=== PATIENT | female | born 1970 | race Two or more races ===

== ENCOUNTER 2024-12-27 16:52 | Emergency (ER) | payer OTHER, SELFPAY ==
[2024-12-27 17:00] VITALS: BP 157/66
[2024-12-27 17:02] VITALS: BP 157/66
[2024-12-27] MEDS: NSS 1000 IV (17:02)
[2024-12-27] MEDS: VALIUM INJECTION 2 MG IV (17:13)
[2024-12-27 17:24] LABS: ALT (SGPT) 202 U/L (0-35); AST (SGOT) 82 U/L (14-36); Albumin 4.8 g/dl (3.5-5.0); Alkaline Phosphatase 123 U/L (38-126); Blood Urea Nitrogen 18 mg/dl (7-17); Calcium 9.9 mg/dl (8.4-10.2); Carbon Dioxide 19 mmol/L (22-30); Chloride 104 mmol/L (98-107); Glucose 209 mg/dl (70-99); Potassium 3.8 mmol/L (3.5-5.1); Sodium 135 mmol/L (135-145); Total Protein 8.1 g/dl (6.3-8.2); eGFR > 60.00
--- NOTE | 2024-12-27 17:25 | ED.GENMED ---
History of Present Illness
General
Chief Complaint: Dizziness
Time Seen by Provider: 12/27/24 17:25
Nursing documentation reviewed up to this point in time: agreed with
History of Present Illness
History of Present Illness:
54-year-old female presents to the ER via EMS for evaluation of dizziness and feeling generally unwell. Patient states that she has felt unwell all day but had onset of dizziness after she had 2 sips of her 's beer. Patient received
droperidol and route to the ER along with Valium and is quite somnolent during interview limiting answering her questions. Patient vomiting and with loose stools on arrival to the ED. She is easily arousable to tactile/verbal stimuli but quickly
falls back asleep.
Past History
Past History
ED Past Medical History: HTN and NIDDM
Phy Exam
Physical Exam
Physical Exam:
Patient is sleeping but arousable, appears in no acute distress, dried vomit present on her chest, head is NCAT, PERRL, EOMI, no nystagmus, mucous membranes moist, conjunctiva pink, heart regular rate and rhythm without murmurs or ectopy, lungs are
clear to auscultation without wheezes rales or rhonchi, no JVD, abdomen is soft and nontender on palpation, extremities without edema, GCS is 15, moving all extremities symmetrically without focal deficit
Course
Orders/Labs/Results
Orders:
Orders
12/27/24 16:55
EKG [Electrocardiogram (*1)] Urgent
Reason for Study: Vertigo / Dizzy
EKG- Treatment ONCE
12/27/24 17:01
Complete Blood Count/With Diff Urgent
Comprehensive Metabolic Panel Urgent
0.9% Sodium Chloride 1000 ml [Nss] 1,000 ml IV BOLUS
12/27/24 17:10
0.9% Sodium Chloride 1000 ml [Nss] 1,000 ml IV BOLUS
diazePAM [Valium Injection] 2 mg IV NOW STA
12/27/24 17:36
CT Head W/o Iv Contrast Urgent
Comment:
Reason For Exam: vertigo
12/27/24 19:27
Urinalysis Urgent
Date Specimen was Collected: 12/27/24
Time Specimen was Collected: :25
Urine Microscopic Urgent
Date Specimen was Collected: 12/27/24
Time Specimen was Collected: 19:25
12/27/24 20:56
CefTRIAXone [Rocephin] 1,000 mg IV NOW STA
Abnormal Lab Results
12/27/24 12/27/24
17:01 19:27
Absolute Lymphs (auto) 5.8 H 10^3/uL
(1.2-3.4)
Neutrophils % 33.7 L %
(42.2-75.2)
Lymphocytes % 55.7 H %
(20.5-51.1)
Carbon Dioxide 19 L mmol/L
(22-30)
BUN 18 H mg/dl
(7-17)
Glucose 209 H mg/dl
(70-99)
AST 82 H U/L
(14-36)
ALT 202 H U/L
(0-35)
Urine Ketones 3+ A
(Negative)
Urine Nitrite Positive A
(Negative)
Ur Leukocyte Esterase 2+ A
(Negative)
Urine RBC 3-6 A /HPF
(0-2)
Urine WBC 6-10 A /HPF
(0-5)
Urine Bacteria Many A
(Negative)
Urine Albumin 2+ A
(Neg - Trace)
12/27/24 17:01
12/27/24 17:01
CBC within normal limits. Mild elevation of blood sugar, kidney function preserved. Electrolytes without significant dyscrasia
Vital Signs
Initial and Last Documented VS:
Initial Vital Signs
Pulse Resp
84 17
12/27/24 16:59 12/27/24 16:59
Last Documented Vital Signs
Temp Pulse Resp BP Pulse Ox
98.3 F 60 18 111/69 94
12/27/24 17:02 12/27/24 22:00 12/27/24 22:00 12/27/24 22:00 12/27/24 22:00
*Pulse Oximetry
SaO2: 97
Oxygen Mode of Delivery: Room air
Patient hypoxic: no
*EKG
Interpreted by ED Provider?: Yes (I independently viewed and interpreted twelve-lead EKG showing normal sinus rhythm, rate 77, leftward axis, no ST elevation, borderline QT prolongation at 486 ms, no evidence for acute ST VT no prior for comparison)
*Ladder Operator Interpretation
Rate: normal (I independently viewed and interpreted rhythm strip showing normal sinus rhythm, no ectopy)
*Critical Care Note
Total Time (30-74mins, 75-104mins- exclusive of procedures): Not Applicable
Update Note
Update Note:
1908: Patient sleeping comfortably, vital signs stable. IV fluids infusing. Awaiting urinalysis. Awaiting CT.
2114: I discussed with patient and now present bedside very reassuring workup in the emergency department. CT head negative. Patient feeling much better after resting after medication administration. We again reviewed events of today,
would suspect that patient has urinary tract infection and experienced a vasovagal episode. I discussed with patient use of antibiotics and need for follow-up with primary care physician. She and feel comfortable with plan. Will plan for
discharge after initial dose of antibiotics.
ED Attending Note
-
Portions of this chart may have been created with voice recognition software.� Occasional wrong word or��sound alike� substitutions may have occurred due to the inherent limitations of voice recognition software.
Discharge Plan
Departure
Patient Disposition: Home (Routine Discharge)
Date of Disposition: 12/27/24
Time of Disposition: 21:49
Patient with high blood pressure during this ER visit?: No
Discharge Problem:
Syncope, Urinary tract infection
Instructions: Syncope (fainting) (DC), Urinary tract infection in adults - ED (DC), Dizziness
Prescriptions:
New
cephalexin 500 mg capsule
500 mg PO BID Qty: 14 0RF
Referrals:
Jessy MARSHALL [Other]
Activity Restrictions/Additional Instructions:
Please follow-up with your primary care physician in 2 days for reevaluation. Encourage fluids. Complete course of antibiotics as prescribed. Return to the ER for any concerns.
Interventions
Interventions:
*Risk Screen - Suicide Last Done: 12/27/24 16:58
*General Assessment Last Done: 12/27/24 16:58
*Neglect/Abuse Screening Last Done: 12/27/24 16:58
*ED- Fall Risk Assessment Last Done: 12/27/24 21:07
*ED COVID-19 Vaccine History Last Done: 12/27/24 16:58
*Nursing Disposition Last Done: 12/27/24 22:28
ED- Neurological Assessment Last Done: 12/27/24 17:04
ED- Cardiac Assessment Last Done: 12/27/24 17:04
ED Swallowing Screen Last Done: 12/27/24 21:07
Discharge Date and Time
Discharge Date/Time: 12/27/24 22:29
Print Language: BAHRAINI
[2024-12-27 17:26] LABS: Hematocrit 39.4 % (37.0-47.0); Hemoglobin 13.5 g/dL (12.0-16.0); Mean Corp Hgb Conc. 34.3 g/dL (33.0-37.0); Mean Corpuscular Volume 87.4 fL (81.0-99.0); Platelet Count 205 10^3/uL (130-400); Red Cell Dist. Width 12.0 % (11.5-14.5)
[2024-12-27 18:00] VITALS: BP 106/49
[2024-12-27 18:29] LABS: Nucleated Red Blood Cells % 0 %
[2024-12-27 19:00] VITALS: BP 119/74
[2024-12-27 19:33] LABS: Urine Character Clear (Clear)
[2024-12-27 21:01] VITALS: BP 126/77
[2024-12-27] MEDS: ROCEPHIN 1000 MG IV (21:02)
[2024-12-27 22:00] VITALS: BP 111/69
== END 2024-12-27 22:29 | disposition home or self-care (01) ==
LOC: EMR 16:52
PROVIDERS: Emergency Medicine; EMERGENCY PHYSICIAN Emergency Medicine
DX: R55 Syncope and collapse (principal); N39.0 Urinary tract infection, site not specified; I10 Essential (primary) hypertension; E11.9 Type 2 diabetes mellitus without complications
CPT/HCPCS: 99284; 96374; 96375; 96361; 70450; 80053; 81003; 81015; 85025; 93005